=== PATIENT | male | born 1980 | race Caucasian/White ===

== ENCOUNTER 2017-03-11 08:21 | Day surgery (SDC) | payer SELFPAY ==
[2017-03-11] MEDS ORDERED: Propofol 10 mg/ml Inj (20 ML) ONE (09:38)
[2017-03-11] MEDS ORDERED: Midazolam 2 MG/2 ML VIAL ONE (09:38)
[2017-03-11] MEDS ORDERED: Lactated Ringer's 500 ML IV ONE (10:18)
--- NOTE | 2017-03-11 10:24 | CP.SDSHP ---
Same Day Surgery H & P - History Proposed Procedure: colonoscopy Pre-Op Diagnosis: high risk colon cancer screening - Previous Medical/Surgical History Comments: Diverticulosis Previous Surgical History: Hydrocele - Allergies Allergies: Allergies pollen extracts Allergy (Verified 03/11/17 09:05) CONGESTION shrimp Allergy (Verified 03/11/17 09:02) URTICARIA - Current Medications Current Medications: reviewed, per reconciliation - Physical Exam General Appearance: wdwn nad Vital Signs: Vital Signs 03/11/17 08:45 Temperature 98.0 F Pulse Rate 79 Respiratory 19 Rate Blood Pressure 108/64 O2 Sat by Pulse 99 Oximetry Mental Status: Alert & Oriented x3 Heart: WNL Lungs: WNL GI: WNL - {Optional Preform as Required} Abdomen: WNL - Impression Impression: Colon screening Pt. Evaluated Today:Candidate for Anesthesia & Procedure: Yes - Date & Time Date: 03/11/17 Time: 10:24 Short Stay Discharge - Short Stay Discharge Admitting Diagnosis/Reason for Visit: FAMILY HISTORY OF MALIGNANT NEOPLASM OF DIGESTIVE Disposition: HOME/ ROUTINE
[2017-03-11 10:29] VITALS: O2SAT 100
[2017-03-11 11:05] VITALS: TEMP 98
[2017-03-11 11:55] VITALS: BP 96/61; PULSE 55; RESP 14
== END 2017-03-11 12:00 | disposition home or self-care (01) ==
LOC: C.ENDO 08:21
PROVIDERS: ATTEND Internal Medicine Gastroenterology
DX: Z12.11 Encounter for screening for malignant neoplasm of colon (principal)
CPT/HCPCS: 45378; 82948; J2250; J2704; J7120

== ENCOUNTER 2017-05-11 18:37 | Emergency (ER) | payer OTHER ==
[2017-05-11 18:55] VITALS: BP 112/65; PULSE 65; TEMP 98.2; O2SAT 99
--- NOTE | 2017-05-11 19:57 | C.PDOC ---
History Of Present Illness Patient is a 37 year old male who presents to the ER with a complaint of right ear pain and muffled hearing for the past 2 days. Patient denies fever, chills, ear discharge, dizziness, or headache. Time Seen by Provider: 05/11/17 19:18 Chief Complaint (Nursing): ENT Problem History Per: Patient History/Exam Limitations: None Onset/Duration Of Symptoms: Days (2) Current Symptoms Are (Timing): Still Present Quality (Ear): denies: Discharge Symptoms Have Been: Continuous Anticoagulant/Antiplatlet Use?: Unknown Recent Aspirin Use: Unknown Past Medical History Reviewed: Historical Data, Nursing Documentation, Vital Signs Vital Signs: Last Vital Signs Temp 98.2 F 05/11/17 18:51 Pulse 65 05/11/17 18:51 Resp 18 05/11/17 20:20 BP 112/65 05/11/17 18:51 Pulse Ox 99 05/12/17 02:22 - Medical History PMH: No Chronic Diseases Surgical History: Appendectomy Family History: States: Unknown Family Hx - Social History Hx Alcohol Use: Yes Hx Substance Use: No - Immunization History Hx Influenza Vaccination: No Review Of Systems Constitutional: Negative for: Fever, Chills ENT: Positive for: Ear Pain, Other (Muffled hearing). Negative for: Ear Discharge Neurological: Negative for: Headache Physical Exam - Physical Exam Appears: Non-toxic Skin: Normal Color, Warm, Dry Head: Atraumatic, Normacephalic Ear(s): Left: Normal, Right: TM Obscured By Wax (Moderate impaction of wax) Oral Mucosa: Moist Throat: Normal, No Erythema, No Exudate Neck: Normal, Supple Neurological/Psych: Oriented x3, Normal Speech, Normal Cognition ED Course And Treatment O2 Sat by Pulse Oximetry: 99 (Room air) Pulse Ox Interpretation: Normal Progress Note: Attempted to disimpact wax with curette with minimal success. Irrigated patient's ear canal with saline and hydrogen peroxide with minimal success. Instructed patient to follow up with ENT. Disposition Counseled Patient/Family Regarding: Diagnosis, Need For Followup, Rx Given - Disposition Referrals: Luis Blanton MD [Staff Provider] - Disposition: HOME/ ROUTINE Disposition Time: 19:54 Condition: STABLE Additional Instructions: Please follow up with ENT Apply ear drops as directed Avoid Q tip in ear Return to ER if worse Prescriptions: Carbamide Peroxide [Debrox Ear Drops] 3 - 5 drop AU BID #1 bottle Instructions: Cerumen Impaction (ED) - Clinical Impression Clinical Impression: Excessive cerumen in both ear canals - Scribe Statement The provider has reviewed the documentation as recorded by the Scribe Jose Alfredo Garcia All medical record entries made by the Scribe were at my direction and personally dictated by me. I have reviewed the chart and agree that the record accurately reflects my personal performance of the history, physical exam, medical decision making, and the department course for this patient. I have also personally directed, reviewed, and agree with the discharge instructions and disposition.
[2017-05-11 20:20] VITALS: RESP 18
== END 2017-05-11 20:20 | disposition home or self-care (01) ==
LOC: MERGE 18:37 → C.ER 18:37
DX: H61.21 Impacted cerumen, right ear (principal)